=== PATIENT | male | born 1965 | race Caucasian/White ===

== ENCOUNTER → 2017-01-23 | Outpatient (CLI) | payer BC ==
[~2017-01-23] VITALS: Ht 188 cm; Wt 94.3 kg
[~2017-01-23] MED LIST: DAILY MULTIPLE1 EACH PO; EXCEDRIN EXTRA1 EACH PO
== END | disposition home or self-care (01) ==
LOC: AMB 12:00
PROC: 0DJDXZZ Inspection of Lower Intestinal Tract, External Approach (ICD-10-PCS; principal; 2017-01-23)
DX: Z12.11 Encounter for screening for malignant neoplasm of colon (principal); Z53.09 Procedure and treatment not carried out because of other contraindication
CPT/HCPCS: J2250; J3010

== ENCOUNTER → 2017-02-13 | Outpatient (CLI) | payer BC ==
[~2017-02-13] VITALS: Ht 188 cm; Wt 95.2 kg
== END | disposition home or self-care (01) ==
LOC: AMB 09:49
PROC: 0DBL8ZX Excision of Transverse Colon, Via Natural or Artificial Opening Endoscopic, Diagnostic (ICD-10-PCS; principal; 2017-02-13)
DX: Z12.11 Encounter for screening for malignant neoplasm of colon (principal); K63.5 Polyp of colon; K64.8 Other hemorrhoids; J32.9 Chronic sinusitis, unspecified; R73.9 Hyperglycemia, unspecified
CPT/HCPCS: 88305